=== PATIENT | female | born 1970 | race Caucasian/White ===

== ENCOUNTER → 2017-09-15 | Outpatient (CLI) | payer BC | LOC: BRMIMAGING 14:06 | PROVIDERS: ATTEND Specialist | DX: S62.616A Displaced fracture of proximal phalanx of right little finger, initial encounter for closed fracture (principal) | CPT/HCPCS: 73130-PO ==

== ENCOUNTER → 2018-11-09 | Outpatient (CLI) | payer BC | LOC: BRMIMAGING 10:23 ==